=== PATIENT | male | born 1945 | race Caucasian/White ===

== ENCOUNTER 2021-07-31 14:59 | Outpatient (CLI) | payer MEDICARE | END 2021-07-31 15:00 | disposition home or self-care (01) | LOC: BICCT 14:59 | PROVIDERS: ATTEND Nurse Practitioner | DX: C43.30 Malignant melanoma of unspecified part of face (principal); R91.8 Other nonspecific abnormal finding of lung field; L92.9 Granulomatous disorder of the skin and subcutaneous tissue, unspecified; K80.20 Calculus of gallbladder without cholecystitis without obstruction; N28.89 Other specified disorders of kidney and ureter; K76.89 Other specified diseases of liver | CPT/HCPCS: 71250 ==

== ENCOUNTER 2021-09-30 14:33 | Outpatient (CLI) | payer MEDICARE ==
[~2021-09-30 14:33] MED LIST: Iopamidol 370 76% 100 ML VIAL ONE
== END 2021-09-30 14:34 | disposition home or self-care (01) ==
LOC: BICCT 14:33
PROVIDERS: ATTEND Nurse Practitioner
DX: C43.30 Malignant melanoma of unspecified part of face (principal); R41.81 Age-related cognitive decline; I67.82 Cerebral ischemia; J32.3 Chronic sphenoidal sinusitis
CPT/HCPCS: 70470; 82565; Q9967

== ENCOUNTER 2022-01-08 14:04 | Outpatient (CLI) | payer MEDICARE | END 2022-01-08 14:05 | disposition home or self-care (01) | LOC: BICMRI 14:04 | PROVIDERS: ATTEND Psychiatry & Neurology Neurology | DX: R41.89 Other symptoms and signs involving cognitive functions and awareness (principal) | CPT/HCPCS: 70553; 82565 ==

== ENCOUNTER 2023-02-06 13:40 | Outpatient (CLI) | payer MEDICARE | END 2023-02-06 13:41 | disposition home or self-care (01) | LOC: BICCT 13:40 | PROVIDERS: ATTEND Nurse Practitioner | DX: C43.30 Malignant melanoma of unspecified part of face (principal); R91.1 Solitary pulmonary nodule; K80.20 Calculus of gallbladder without cholecystitis without obstruction; Q44.6 Cystic disease of liver | CPT/HCPCS: 71250 ==

== ENCOUNTER 2023-03-19 15:57 | Outpatient (CLI) | payer MEDICARE | END 2023-03-19 15:58 | disposition home or self-care (01) | LOC: BICCT 15:57 | PROVIDERS: ATTEND Nurse Practitioner | DX: C43.30 Malignant melanoma of unspecified part of face (principal); G50.0 Trigeminal neuralgia; F51.5 Nightmare disorder; I65.29 Occlusion and stenosis of unspecified carotid artery; J34.89 Other specified disorders of nose and nasal sinuses; H74.8X2 Other specified disorders of left middle ear and mastoid; R90.89 Other abnormal findings on diagnostic imaging of central nervous system; Z92.3 Personal history of irradiation | CPT/HCPCS: 70470; 82565 ==